=== PATIENT | male | born 1950 | race Two or more races ===

== ENCOUNTER 2019-01-11 10:50 | Outpatient (CLI) | payer OTHER ==
[2019-01-11] MEDS ORDERED: HYDROCHLOROTHIA25 MG PO (11:48)
[2019-01-11] MEDS ORDERED: ANAPROX PO (11:49)
== END 2019-01-11 10:58 | disposition home or self-care (01) ==
LOC: EKG 10:50
DX: Z01.810 Encounter for preprocedural cardiovascular examination (principal)